=== PATIENT | female | born 1980 | race Caucasian/White ===

== ENCOUNTER 2017-03-14 19:55 | Emergency (ER) | payer MEDICAID, OTHER ==
[~2017-03-14] VITALS: Ht 162.6 cm; Wt 76.5 kg
[2017-03-14 19:59] VITALS: Ht 162.6 cm; Wt 76.5 kg
[2017-03-14] MEDS ORDERED: ACET/BUTAL/CAFF TAB PO ONE (22:30)
--- NOTE | 2017-03-14 22:31 | ERD ---
ER Documentation Chief Complaint Chief Complaint MARTINEZ x 3 days; taking tylenol/motrin not working HPI 36-year-old female presents here to emergency department for complaints of headache for 3 days, describes the headache as frontal headache throbbing pain,6 /10 scale, intermittent pain, not better or worse with anything, tried to take Tylenol Motrin at home with only very mild relief. Patient denies any head injury. Patient denies any numbness or tingling, blurry vision, changes in balance or memory. Patient denies any recent head injury. Patient denies any thunderclap headache, severe sudden onset of headache. Patient neck pain or neck rigidity. ROS All systems reviewed and are negative except as per history of present illness. Medications Home Meds Reported Medications [none] Unknown Strength No Conflict Check 03/14/17 Allergies Allergies: Coded Allergies: Sulfa (Sulfonamide Antibiotics) (Verified Allergy, Unknown, 09/19/15) PMhx/Soc History of Surgery: Yes (c/section ) Anesthesia Reaction: No Hx Neurological Disorder: No Hx Respiratory Disorders: No Hx Cardiac Disorders: No Hx Psychiatric Problems: No Hx Miscellaneous Medical Probl: No Hx Alcohol Use: No Hx Substance Use: No Hx Tobacco Use: No Smoking Status: Never smoker FmHx Family History: No coronary disease, No diabetes, No other Physical Exam Vitals Vital Signs Date Time Temp Pulse Resp B/P Pulse Ox O2 Delivery O2 Flow Rate FiO2 03/14/17 19:59 99.5 81 20 157/93 99 Physical Exam GENERAL: The patient is well developed and appropriate for usual state of health, in no apparent distress. CHEST: Clear to auscultation bilaterally. There are no rales, wheezes or rhonchi. HEART: Regular rate and rhythm. No murmurs, clicks, rubs or gallops. No S3 or S4. ABDOMEN: Soft, nontender and nondistended. Good bowel sounds. No rebound or guarding. No gross peritonitis. No gross organomegaly or masses. No Newman sign or McBurney point tenderness. BACK: No midline or flank tenderness. EXTREMITIES: Equal pulses bilaterally. There is no peripheral clubbing, cyanosis or edema. No focal swelling or erythema. Full range of motion. Grossly neurovascularly intact. NEURO: Alert and oriented. Cranial nerves 2-12 intact. Motor strength in all 4 extremities with 5/5 strength. Sensation grossly intact. Normal speech and gait. Negative Romberg sign. Negative pronator drift SKIN: There is no apparent rash or petechia. The skin is warm and dry. HEMATOLOGIC AND LYMPHATIC: There is no evidence of excessive bruising or lymphedema. No gross cervical, axillary, or inguinal lymphadenopathy. Results 24 hrs Current Medications Medications (Trade) Dose Ordered Sig/Olivia Route PRN Reason Start Time Stop Time Status Last Admin Dose Admin Acetaminophen/ Butalbital/ Caffeine (Fioricet) 1 tab ONCE ONCE PO 03/14/17 22:30 03/14/17 22:31 Patient was given medication for pain here in emergency department, after treatment, patient verbalized feeling much better. Patient's pain is improved. Procedures/MDM Medical Decision Making: Patient symptoms are consistent with migraine headache , possible tension headache. There is low suspicion for neurological emergencies at this time since patients neurologic exam is normal. Patient did not have any altered level consciousness, vomiting, changes in balance or memory and did not have any head injury. CT scan of the brain not indicated at this time. LP not indicated at this time, no symptoms of any subarachnoid bleed , meningitis, no nuchal rigidity, low suspicion for any space-occupying lesion, neurologic exam is normal. Rx: Fioricet with codeine, Zofran Dispostion: Home. Stable Disclaimer: Inadvertent spelling and grammatical errors are likely due to EHR/ dictation software use and do not reflect on the overall quality of patient care. Also, please note that the electronic time recorded on this note does not necessarily reflect the actual time of the patient encounter. Departure Diagnosis: Primary Impression: Headache Headache type: unspecified Headache chronicity pattern: acute headache Intractability: not intractable Qualified Code: R51 - Acute nonintractable headache, unspecified headache type Condition: Stable Patient Instructions: Self-Care for Headaches SHARDA LUCERO NP Mar 14, 2017 22:31
[2017-03-14] MEDS ORDERED: ONDA4TAB14 PO (22:32)
[2017-03-14] MEDS ORDERED: ABCC1C PO (22:32)
== END 2017-03-14 23:16 | disposition home or self-care (01) ==
LOC: FTE 19:55
DX: R51 Headache (principal)
CPT/HCPCS: Z7502; Z7610; 99283